=== PATIENT | female | born 1970 | race Caucasian/White ===

== ENCOUNTER 2021-05-19 16:40 | Emergency (ER) | payer SELFPAY ==
[2021-05-19 17:02] VITALS: BP 107/71; PULSE 64; TEMP 98.5; BMI 68.5
[2021-05-19 19:03] LABS: EPI CELLS 11 /uL (0-25.1); HYALINE CASTS 16 /uL (0-3.1); URINE APPEARANCE TURBID; URINE BACTERIA >9,000 /uL (0-1359); URINE BILIRUBIN NEGATIVE (NEGATIVE); URINE COLOR YELLOW; URINE GLUCOSE (UA) NEGATIVE (NEGATIVE); URINE KETONE NEGATIVE (NEGATIVE); URINE LEUK ESTERASE 3+ (NEGATIVE); URINE NITRITE POSITIVE (NEGATIVE); URINE PROTEIN 3+ (NEGATIVE); URINE UROBILINOGEN 0.2 mg/dL (0.2-1.0); URINE WBC 21656 /uL (0-25.8)
[2021-05-19] MEDS ORDERED: KETOROLAC TROMETHAMINE 30 MG/1 ML VIAL IM ONE (19:14)
== END 2021-05-19 20:43 | disposition home or self-care (01) ==
LOC: JERFT 16:40
PROC: 3E0233Z Introduction of Anti-inflammatory into Muscle, Percutaneous Approach (ICD-10-PCS; principal; 2021-05-19)
DX: R30.0 Dysuria (principal); R10.30 Lower abdominal pain, unspecified; N30.00 Acute cystitis without hematuria
CPT/HCPCS: 81003; 87086; 87186; 99284-25